=== PATIENT | female | born 1995 | race Caucasian/White ===

== ENCOUNTER 2018-09-11 10:49 | Outpatient (CLI) | payer OTHER ==
--- NOTE | 2018-09-11 12:30 | Non Stress Test Report ---
Non Stress Test Datetime Report Generated by CPN: 09/11/2018 12:30 INDICATION Indication for Study: Other Indication for Study (NST) Other: repeat NST VITAL SIGNS Temperature - NST: 97.9 Pulse - NST: 76 RESP - NST: 18 NBPSYS NST: 98 NBPDIA NST: 56 MONITORING Monitor Explained: Monitor Explained; Test Explained; Patient Verbalized Understanding Time on Monitor: 09/11/2018 11:04 Time off Monitor: 09/11/2018 11:44 NST Duration: 40 NST INTERVENTIONS NST Interventions: PO Hydration Physician Notified NST: Gelacio HOLLINS, TOMASA Physician Notified NST: GelacioLisa GarciaRENE chawlaDENTAL HYGIENE ADMINISTRATIVE ASSISTANT A: [id number] BABY A Movement : Present Contraction Frequency : 0 FHR Baseline : 125 Accelerations : 15X15 Decelerations : None Variability : Moderate 6-25bpm NST Review: Meets Criteria for Reactive NST NST Review and Verified By : RENE SARAVIA Results: Reactive NST REPORT Report Trigger: Send Report
== END 2018-09-11 11:56 | disposition home or self-care (01) ==
LOC: LC 10:49
PROVIDERS: ATTEND Obstetrics & Gynecology
DX: Z34.93 Encounter for supervision of normal pregnancy, unspecified, third trimester (principal)
CPT/HCPCS: 59025

== ENCOUNTER 2018-10-06 09:01 | Outpatient (CLI) | payer OTHER | END 2018-10-06 09:39 | disposition home or self-care (01) | LOC: LC 09:01 | PROVIDERS: ATTEND Obstetrics & Gynecology | PROC: 4A1HXCZ Monitoring of Products of Conception, Cardiac Rate, External Approach (ICD-10-PCS; principal; 2018-10-06) | DX: Z34.93 Encounter for supervision of normal pregnancy, unspecified, third trimester (principal) | CPT/HCPCS: 59025 ==

== ENCOUNTER 2018-10-12 06:45 | Inpatient (IN) | payer OTHER ==
[2018-10-11 11:20] LABS: ABSOLUTE EOSINOPHILS # (AUTO) 0.2 10^3/uL (0.0-0.6); ABSOLUTE LYMPHOCYTES (AUTO) 1.7 10^3/uL (0.5-4.7); ABSOLUTE MONOCYTES (AUTO) 0.5 10^3/uL (0.1-1.4); ABSOLUTE NEUT (AUTO) 5.9 10^3/uL (1.7-8.2); BASOPHILS % (AUTO) 0.2 % (0-2); HEMATOCRIT 34.7 % (36.0-47.0); HEMOGLOBIN 11.9 g/dL (12.0-15.5); LYMPHOCYTES % (AUTO) 20.4 % (13-45); MEAN CORPUSCULAR HEMOGLOBIN 28.5 pg (27.0-33.4); MEAN CORPUSCULAR HGB CONC 34.3 g/dL (32.0-36.0); MEAN CORPUSCULAR VOLUME 83 fl (80-97); MONOCYTES % (AUTO) 5.7 % (3-13); PLATELET COUNT 115 10^3/uL (150-450); RED BLOOD COUNT 4.17 10^6/uL (3.72-5.28); RED CELL DISTRIBUTION WIDTH 16.4 % (11.5-14.0); SEGMENTED NEUTROPHILS % (AUTO) 71.7 % (42-78); TOTAL CELLS COUNTED % (AUTO) 100 %; WHITE BLOOD COUNT 8.2 10^3/uL (4.0-10.5)
[2018-10-11 11:28] LABS: APPEARANCE,URINE CLEAR; BILIRUBIN,URINE NEGATIVE (NEGATIVE); COLOR,URINE STRAW; GLUCOSE, URINE NEGATIVE (NEGATIVE); KETONES,URINE NEGATIVE (NEGATIVE); LEUKOCYTE ESTERASE,URINE NEGATIVE (NEGATIVE); NITRITE,URINE NEGATIVE (NEGATIVE); PROTEIN,URINE NEGATIVE (NEGATIVE); URINE SPECIFIC GRAVITY 1.008; UROBILINOGEN,URINE NEGATIVE mg/dL (<2.0)
[2018-10-11 11:45] LABS: URINE AMPHETAMINES SCREEN NEGATIVE; URINE BARBITURATES SCREEN NEGATIVE; URINE BENZODIAZEPINES SCREEN NEGATIVE; URINE COCAINE SCREEN NEGATIVE; URINE MARIJUANA (THC) SCREEN NEGATIVE; URINE METHADONE SCREEN NEGATIVE; URINE PHENCYCLIDINE SCREEN NEGATIVE
[2018-10-11 12:51] LABS: CHLAM PCR NOT DETECTED (NOT DETECT); GON PCR NOT DETECTED (NOT DETECT)
[~2018-10-12 06:45] MED LIST: CEFAZOLIN 2 GM/D5W RTU 2 GM/50 ML RTUPB IV PRN; LIDOCAINE 0.5% INJ-PF (5 MG/ML) 50 ML SDV SUBCUT PRN
[2018-10-12] MEDS ORDERED: CEFAZOLIN SODIUM 2 GM in DEXTROSE 5%-WATER 100 ML IV PRN (08:29)
[2018-10-12] MEDS: RINGERS SOLUTION,LACTATED 1,000 ML IV PRN ×2 (08:51→21:21)
[2018-10-12] MEDS ORDERED: EPHEDRINE SULFATE INJ 50 MG/1 ML AMPULE ONE (09:09)
[2018-10-12] MEDS ORDERED: ONDANSETRON HCL INJ/PF 4 MG/2 ML SDV ONE (09:09)
[2018-10-12] MEDS ORDERED: MIDAZOLAM 2 MG/2 ML INJ ONE (09:09)
[2018-10-12] MEDS ORDERED: OXYTOCIN 10 UNIT/ML VIAL ONE (09:09)
[2018-10-12] MEDS ORDERED: FENTANYL CITRATE INJ/PF 100 MCG/2 ML AMPUL ONE ×2 (09:09→11:55)
[2018-10-12] MEDS ORDERED: BUPIVACAINE HCL/DEX-WATER/PF 15 MG/2 ML AMPULE ONE (09:25)
[2018-10-12] MEDS ORDERED: ACETAMINOPHEN 1,000 MG/100 ML RTUPB IV ONE (09:45)
[2018-10-12] MEDS ORDERED: FENTANYL CITRATE INJ/PF 100 MCG/2 ML AMPUL IV PRN ×3 (10:07)
[2018-10-12] MEDS ORDERED: MEPERIDINE HCL/PF INJ 25 MG/1 ML DISP.SYRIN IV PRN (10:07)
[2018-10-12] MEDS ORDERED: MORPHINE SULFATE 10 MG/ML INJ IV PRN (10:07)
[2018-10-12] MEDS ORDERED: DIPHENHYDRAMINE HCL 50 MG/ML VIAL IV PRN (10:07)
[2018-10-12] MEDS ORDERED: OXYCODONE-ACETAMINOPHEN 5-325 MG TABLET PO PRN ×3 (10:07→10:38)
[2018-10-12] MEDS ORDERED: PROMETHAZINE HCL INJ 25 MG/1 ML VIAL IV PRN ×3 (10:07→10:38)
[2018-10-12] MEDS ORDERED: SIMETHICONE 80 MG TAB.CHEW PO PRN (10:38)
[2018-10-12] MEDS ORDERED: DIPH/PERTUSS(ACELL)/TETANUS VAC/PF 0.5 ML SYR (>=10YO) IM PRN (10:38)
[2018-10-12] MEDS ORDERED: ACETAMINOPHEN 325 MG TABLET PO PRN (10:38)
[2018-10-12] MEDS ORDERED: ACETAMINOPHEN 1,000 MG/100 ML RTUPB IV PRN (10:38)
[2018-10-12] MEDS ORDERED: RINGERS SOLUTION,LACTATED 1,000 ML IV PRN (10:38)
[2018-10-12] MEDS ORDERED: OXYTOCIN/NORMAL SALINE 20 UNIT/1,000 ML RTUINJ IV PRN (10:38)
--- NOTE | 2018-10-12 10:44 | PDOC DELIVERY SUMMARY ---
Delivery Summary - Maternal Hx : I ANNE: 10/15/18 Gestational Age: 39.1 Ruptured Membranes: AROM Time of Rupture: 09:52 Fluids: Clear - Delivery Labor: Not In Labor Presentation: Vertex Heart Rate Monitoring: Done Pre-Operatively Support Person Present: Yes - BABYS FATHER AT BEDSIDE Location: OR : Scheduled Placenta: Within Normal Limits Placenta Description: Normal appearing Number of Vessels (Cord): 3 Delivery of Placenta Date: 10/12/18 Delivery of Placenta Time: 09:56 Estimated Blood Loss: 800 ml Delivery Quantitative Blood Loss (QBL): 650 - Medications Type of Anesthesia:: Spinal - Delivery Medications Delivery Meds: Methergine 0.2mg IM - Assess and Care Baby 1 Male Delivery of Infant Date: 10/12/18 Delivery of Time: 09:54 at 1 minute: 9 at 5 minutes: 9 Preprinted Number On Band: [id number] Infant Skin to Skin: Yes Skin to Skin (Mins): 2 To Nursery At: 10:01 Mode of Transport: Bassinet Infant Delivery Weight: 4,640 Delivery Length: 21.5 in - Delivery Personnel [employer]: JUSTO RABAGO Nurseblair RN: BOAZ ZAMAN MD: GURU CHEW
--- NOTE | 2018-10-12 10:56 | Operative Report ---
Operative Report DATE OF SURGERY: 10/12/18 PREOPERATIVE DIAGNOSIS: 1. Intrauterine at 39 weeks. 2. Suspected macrosomia. 3. GBS positive. 4. Rh+. 5. Rubella immune POSTOPERATIVE DIAGNOSIS: Same plus macrosomia OPERATION: Primary low transverse section SURGEON: GURU BRAYD ANESTHESIA: Spinal TISSUE REMOVED OR ALTERED: Placenta COMPLICATIONS: None ESTIMATED BLOOD LOSS: 800 ml INTRAOPERATIVE FINDINGS: Normal-appearing placenta; male fetus in a cephalic position; Apgars 9 at 1, 9 at 5 with a weight of 10 pounds 3 ounces; normal uterus, tubes and ovaries PROCEDURE: The patient was taken to the operating room where spinal anesthesia was obtained and found to be adequate. She was then prepped and draped in the normal sterile fashion and placed in the dorsal supine position with a leftward tilt. A Pfannenstiel skin incision was then made and carried through to the underlying layers of the fascia with the scalpel. The fascia was incised in the midline and the incision extended laterally with the Webb scissors. The superior aspect of the fascial incision was then grasped with Cleo clamps elevated and the underlying rectus muscles dissected off [both bluntly and sharply]. Attention was then turned to the inferior aspect of the fascial incision which in a similar fashion was grasped, tented up with Cleo clamps, and the rectus muscles dissected off [both bluntly and sharply]. The rectus muscles were then in the midline and the peritoneum at the amount identified and entered [bluntly]. The peritoneal incision was then extended superiorly and inferiorly with good visualization of the bladder. The bladder blade was inserted and the vesicouterine peritoneum identified grasped with [place] pickups and entered sharply with the Metzenbaum scissors. This incision was then extended laterally with the Metzenbaum scissors and a bladder flap created digitally. The bladder blade was then reinserted and the lower uterine segment incised in a transverse fashion with the scalpel. The uterine incision was then extended bluntly. The bladder blade was removed and the infant's head was delivered from cephalic presentation atraumatically. The nose and mouth were suctioned and the cord doubly clamped and cut. And the was handed off to waiting pediatricians. The placenta was then delivered spontaneously and the uterus exteriorized and cleared of all clots and debris. The uterine incision was then repaired with 0 Vicryl in a running locked fashion. A second layer, using 0 chromic, was used to obtain hemostasis via imbrication of the initial layer. The bladder flap was then repaired with 3-0 Vicryl in a running fashion. The uterus was returned to the patient's abdomen and Interceed was placed overlying the uterine incision, as well as a piece placed vertically on the anterior surface of the uterus, to prevent adhesions. The gutters were cleared of all clots and debris. All operative sites were noted to be hemostatic. The fascia was reapproximated with 0 Vicryl in a running fashion from each lateral edge to the midline. The subcutaneous fat layer was then closed in an interrupted fashion with 3-0 vicryl. The skin was closed with 4-0 Monocryl in a running, subcuticular fashion. The patient tolerated the procedure well. Sponge, lap, needle and instrument counts are correct x 2. 2 g of Ancef were given prior to skin incision. The patient was taken to the recovery area awake and in stable condition.
--- NOTE | 2018-10-12 10:58 | Brief Operative Note ---
BRIEF OPERATIVE REPORT DATE OF SURGERY: 10/12/18 TIME OF SURGERY: 09:30 PREOPERATIVE DIAGNOSIS: 1. Intrauterine at 39 weeks. 2. Suspected macrosomia. 3. GBS positive. 4. Rh+. 5. Rubella immune POSTOPERATIVE DIAGNOSIS: Same plus macrosomia SURGEON: GURU BRADY FINDINGS: Male in the cephalic position COMPLICATIONS: None ESTIMATED BLOOD LOSS: 800 ml TISSUE REMOVED OR ALTERED: Placenta TECHNICAL PROCEDURE: Primary low transverse section
[2018-10-12] MEDS ORDERED: KETOROLAC TROMETHAMINE INJ/PF 30 MG/1 ML SDV ONE (12:57)
[2018-10-12] MEDS: KETOROLAC TROMETHAMINE INJ/PF 30 MG/1 ML SDV IV SCH ×2 (13:00→22:01)
[2018-10-12] MEDS: HYDROMORPHONE HCL INJ/PF 2 MG/ML AMPULE IV PRN ×2 (14:30→19:46)
[2018-10-12] MEDS: DOCUSATE SODIUM 100 MG CAPSULE PO SCH (17:24)
[2018-10-13] MEDS: OXYCODONE-ACETAMINOPHEN 5-325 MG TABLET PO PRN ×4 (01:59→17:41)
[2018-10-13] MEDS: KETOROLAC TROMETHAMINE INJ/PF 30 MG/1 ML SDV IV SCH (05:52)
[2018-10-13 07:49] LABS: HEMATOCRIT 32.4 % (36.0-47.0); HEMOGLOBIN 10.9 g/dL (12.0-15.5); MEAN CORPUSCULAR HEMOGLOBIN 28.6 pg (27.0-33.4); MEAN CORPUSCULAR HGB CONC 33.8 g/dL (32.0-36.0); MEAN CORPUSCULAR VOLUME 85 fl (80-97); PLATELET COUNT 118 10^3/uL (150-450); RED BLOOD COUNT 3.82 10^6/uL (3.72-5.28); RED CELL DISTRIBUTION WIDTH 16.4 % (11.5-14.0); WHITE BLOOD COUNT 9.7 10^3/uL (4.0-10.5)
[2018-10-13] MEDS: PRENATAL VITAMIN W DHA CAPSULE PO SCH (10:10)
[2018-10-13] MEDS: DOCUSATE SODIUM 100 MG CAPSULE PO SCH ×2 (10:10→17:42)
--- NOTE | 2018-10-13 11:03 | PDOC PROGRESS REPORT ---
Subjective-OB Progress Note for:: 10/13/18 Physical Exam (OB) Vital Signs: Temp Pulse Resp BP Pulse Ox 98.1 F 83 18 117/66 98 10/13/18 08:54 10/13/18 08:54 10/13/18 08:54 10/13/18 08:54 10/13/18 08:54 Intake & Output 10/12/18 10/13/18 10/14/18 06:59 06:59 06:59 Intake Total 3250 Output Total 760 Balance 2490 Weight 99.79 kg 100 kg - PIH/Pre-Eclampsia DTR's: 1 + Clonus: Negative Headache: Absent Epigastric Pain: No Visual Changes: No - Dressing Removed: No Incision: Dressing Closure Type: op site - Lochia Lochia Amount: Scant < 10 ml Lochia Color: Rubra/Red - Abdomen Description: Soft, Round Hernia Present: No Bowel Sounds: Normoactive Flatus Presence: Present Stool: No Fundal Description: Firm, Midline Fundal Height: u/u - u/2 Objective-Diagnostic Laboratory: 10/13/18 07:34 10/13/18 07:34 WBC 9.7 RBC 3.82 Hgb 10.9 L Hct 32.4 L MCV 85 MCH 28.6 MCHC 33.8 RDW 16.4 H Plt Count 118 L
[2018-10-13] MEDS: IBUPROFEN 800 MG TABLET PO SCH (17:42)
[2018-10-14] MEDS: OXYCODONE-ACETAMINOPHEN 5-325 MG TABLET PO PRN (01:00)
[2018-10-14] MEDS: IBUPROFEN 800 MG TABLET PO SCH ×3 (01:05→11:58)
[2018-10-14 08:34] VITALS: BP 119/73
[2018-10-14] MEDS: PRENATAL VITAMIN W DHA CAPSULE PO SCH (10:39)
[2018-10-14] MEDS: DOCUSATE SODIUM 100 MG CAPSULE PO SCH (10:39)
--- NOTE | 2018-10-14 11:13 | PDOC PROGRESS REPORT ---
Subjective-OB Progress Note for:: 10/14/18 Subjective: Ready to go home. Physical Exam (OB) Vital Signs: Temp Pulse Resp BP Pulse Ox 98.0 F 85 14 119/73 99 10/14/18 08:32 10/14/18 08:32 10/14/18 08:32 10/14/18 08:32 10/14/18 08:32 Intake & Output 10/13/18 10/14/18 10/15/18 06:59 06:59 06:59 Intake Total 3250 Output Total 760 Balance 2490 Weight 100 kg - PIH/Pre-Eclampsia DTR's: 1 + Clonus: Negative Headache: Absent Epigastric Pain: No Visual Changes: No - Dressing Removed: No - optsite clean, dry, and intact Incision: Dressing Closure Type: op site - Lochia Lochia Amount: Scant < 10 ml Lochia Color: Rubra/Red - Abdomen Description: Soft, Round Hernia Present: No Bowel Sounds: Normoactive Flatus Presence: Present Stool: Yes Fundal Description: Firm, Midline Fundal Height: u/u - u/2 Objective-Diagnostic Laboratory: 10/13/18 07:34
--- NOTE | 2018-10-14 11:20 | PDOC DISCHARGE SUMMARY ---
Final Diagnosis Discharge Date: 10/14/18 - Final Diagnosis (1) Is this a current diagnosis for this admission?: Yes (2) S/P primary low transverse Is this a current diagnosis for this admission?: Yes (3) Macrosomia Is this a current diagnosis for this admission?: Yes Discharge Data - Discharge Medication Prescriptions: Oxycodone HCl/Acetaminophen [Percocet 5-325 mg Tablet] 1 tab PO Q4HP PRN #20 tablet PRN Reason: Ibuprofen [Motrin 800 mg Tablet] 800 mg PO Q6 #30 tablet Home Medications: 114/Iron A-G/Folate 1 [Prenate Elite Tablet] 1 each PO DAILY 09/11/18 Ferrous Sulfate [Iron] 325 mg PO DAILY 10/06/18 Loratadine [Claritin 10 mg Tablet] 10 mg PO DAILY 10/12/18 Ibuprofen [Motrin 800 mg Tablet] 800 mg PO Q6 #30 tablet 10/14/18 Oxycodone HCl/Acetaminophen [Percocet 5-325 mg Tablet] 1 tab PO Q4HP PRN #20 tablet 10/14/18 Reason(s) for Admission: Ceasarean Section-Primary Procedures: Ultrasound Intrapartum Procedure(s): : Low Cervical, Transverse - Data Baby 1 Male at 1 minute: 9 at 5 minutes: 9 Weight: 4640 kg Home with Mother: Yes Complications: No - Diagnosis Test Laboratory: Temp Pulse Resp BP Pulse Ox 98.0 F 85 14 119/73 99 10/14/18 08:32 10/14/18 08:32 10/14/18 08:32 10/14/18 08:32 10/14/18 08:32 10/11/18 10/11/18 10/13/18 10:35 10:50 07:34 RBC 4.17 3.82 Hgb 11.9 L 10.9 L Hct 34.7 L 32.4 L Urine Opiates Screen NEGATIVE - Discharge information/Instructions Discharge Activity: Activity As Tolerated, Balance Activity w/Rest, No Lifting Over 10 Pounds, No Lifting/Push/Pulling, Pelvic Rest, Slowly Increase Activity, No tub bath Discharge Diet: Regular Disposition: HOME, SELF-CARE Follow up with: [facility] in: 1, Weeks
--- NOTE | 2018-10-15 23:36 | Non Stress Test Report ---
Non Stress Test Datetime Report Generated by CPN: 10/15/2018 23:36 DEMOGRAPHIC EGA NST: 38.5 INDICATION Indication for Study: Ordered by Provider VITAL SIGNS Temperature - NST: 99.2 Pulse - NST: 86 RESP - NST: 17 NBPSYS NST: 106 NBPDIA NST: 62 MONITORING Monitor Explained: Monitor Explained; Test Explained; Patient Verbalized Understanding Time on Monitor: 10/06/2018 09:11 Time off Monitor: 10/06/2018 09:32 NST Duration: 21 NST INTERVENTIONS NST Interventions: PO Hydration; Reposition Patient Physician Notified NST: A Boo CNM BABY A: [id number] BABY A Movement : Present Contraction Frequency : none FHR Baseline : 135 Accelerations : 15X15 Decelerations : None Variability : Moderate 6-25bpm NST Review: Meets Criteria for Reactive NST NST Review and Verified By : Manju Cervantes RNC NST Results: Reactive NST REPORT Report Trigger: Send Report
== END 2018-10-14 12:28 | disposition home or self-care (01) | DRG 788 ==
LOC: 2S 06:45
PROVIDERS: ADMIT Obstetrics & Gynecology; ATTEND Obstetrics & Gynecology
PROC: 10D00Z1 Extraction of Products of Conception, Low, Open Approach (ICD-10-PCS; principal; 2018-10-12 09:15)
DX: O36.63X0 Maternal care for excessive fetal growth, third trimester, not applicable or unspecified (principal); O99.824 Streptococcus B carrier state complicating childbirth; O99.334 Smoking (tobacco) complicating childbirth; F17.211 Nicotine dependence, cigarettes, in remission; Z3A.39 39 weeks gestation of pregnancy; Z37.0 Single live birth
CPT/HCPCS: 1961; 36415; 59025; 80307; 81001; 85025; 85027; 86850; 86900; 86901; 87491; 87591; 94799; C1765; J0131; J1170; J1885; J2250; J2405; J2550; J2590; J3010; J3490; J7120

== ENCOUNTER 2019-09-15 00:51 | Emergency (ER) | payer OTHER ==
[2019-09-15] MEDS ORDERED: DIPHENHYDRAMINE HCL 50 MG/ML VIAL IV ONE (05:34)
[2019-09-15] MEDS ORDERED: KETOROLAC TROMETHAMINE INJ/PF 30 MG/1 ML SDV IV ONE (05:34)
[2019-09-15] MEDS ORDERED: PROCHLORPERAZINE EDISYLATE INJ 10 MG/2 ML VIAL IV ONE (05:34)
[2019-09-15] MEDS ORDERED: NORMAL SALINE 1000 ML 1,000 ML IV ONE (05:34)
--- NOTE | 2019-09-15 05:38 | ER Document Report ---
ED Headache - General Chief Complaint: Headache Stated Complaint: HEAD PAIN Time Seen by Provider: 09/15/19 05:28 Primary Care Provider: JIM TEJEDA FNP-C [Primary Care Provider] - Follow up as needed Mode of Arrival: Ambulatory Information source: Patient Notes: Patient presents complaining of headache that started gradually 3 days ago. Patient states that headache worsened today. Patient reports headache in the frontal area with nausea diarrhea and sore throat. Patient states that 3 days ago she had a fever but none since then. Patient denies any head injury or history of migraines. No history of IV drug use. No neck or back tenderness. TRAVEL OUTSIDE OF THE [place] IN LAST 30 DAYS: No - HPI Patient complains to provider of: Headache Onset: This afternoon Onset was: Gradual Timing: Still present Quality of pain: Achy Pain Level: 4 Associated symptoms: Photophobia. denies: Chills, Confusion, Fever, Neck pain, Speech problems, Stiff neck, Trouble walking Exacerbated by: Light Similar symptoms previously: Yes Recently seen / treated by doctor: No - Related Data Allergies/Adverse Reactions: No Known Allergies Allergy (Verified 10/06/18 09:43) Home Medications: zoloft. BC pills Past Medical History - General Information source: Patient, Relative - Social History Smoking Status: Never Smoker Frequency of alcohol use: None Drug Abuse: None Occupation: None Lives with: Family Family History: Reviewed & Not Pertinent Patient has suicidal ideation: No Patient has homicidal ideation: No EENT Medical History: Reports: Other - Allergies Psychiatric Medical History: Reports: Hx Depression Past Surgical History: Reports: Hx Section Review of Systems - Review of Systems Constitutional: No symptoms reported. denies: Fever, Recent illness EENT: Throat pain Cardiovascular: No symptoms reported. denies: Chest pain Respiratory: No symptoms reported. denies: Cough, Short of breath Gastrointestinal: Diarrhea, Nausea. denies: Abdominal pain, Vomiting Genitourinary: No symptoms reported. denies: Dysuria Female Genitourinary: No symptoms reported Musculoskeletal: No symptoms reported. denies: Back pain, Neck pain Skin: No symptoms reported. denies: Rash Hematologic/Lymphatic: No symptoms reported Neurological/Psychological: Headaches Physical Exam - Vital signs Vitals: Temp Pulse Resp BP Pulse Ox 97.6 F 69 12 120/65 96 09/15/19 00:58 09/15/19 00:58 09/15/19 00:58 09/15/19 00:58 09/15/19 00:58 - General General appearance: Appears well, Alert In distress: None - HEENT Head: Normocephalic Eyes: Normal Conjunctiva: Normal Eyelashes: Normal Pupils: PERRL Ears: Normal External canal: Normal Tympanic membrane: Normal Nasal: Normal Mouth/Lips: Normal Mucous membranes: Normal Pharynx: Erythema. No: Peritonsillar abscess, Tonsillar hypertrophy Neck: Normal, Supple. No: Lymphadenopathy, Meningismus - Respiratory Respiratory status: No respiratory distress Chest status: Nontender Breath sounds: Normal Chest palpation: Normal - Cardiovascular Rhythm: Regular Heart sounds: S1 appreciated, S2 appreciated - Back Back: Normal, Nontender. No: CVA tenderness, Vertebra tenderness - Extremities General upper extremity: Normal inspection General lower extremity: Normal inspection - Neurological Neuro grossly intact: Yes Cognition: Normal Orientation: AAOx4 Barbara Coma Scale Eye Opening: Spontaneous Barbara Coma Scale Verbal: Oriented Barbara Coma Scale Motor: Obeys Commands Barbara Coma Scale Total: 15 - Psychological Associated symptoms: Normal affect, Normal mood - Skin Skin Temperature: Warm Skin Moisture: Dry Skin Color: Normal Course - Re-evaluation Re-evalutation: 09/15/19 06:54 Patient reports that headache pain is improved at this time although not completely resolved. Patient declines needing any additional medication at this time. Patient reports feeling better. The patient presents with headache without signs of TESTING ANALYST bleed, stroke, infection, or other serious etiology. The patient is neurologically intact. Given the extremely low risk of these diagnoses further testing and evaluation for these possibilities does not appear to be indicated at this time. The patient has been instructed to return if the symptoms worsen or change in any way. - Vital Signs Vital signs: Temp Pulse Resp BP Pulse Ox 97.6 F 69 12 120/65 96 09/15/19 00:58 09/15/19 00:58 09/15/19 00:58 09/15/19 00:58 09/15/19 00:58 Discharge - Discharge Clinical Impression: Headache Qualifiers: Headache type: unspecified Headache chronicity pattern: unspecified pattern Intractability: not intractable Qualified Code(s): R51 - Headache Condition: Stable Disposition: HOME, SELF-CARE Instructions: Intravenous Compazine for Headaches ([facility]), Use of Diphenhydramine, Headache ([facility]), Toradol Injection ([facility]) Additional Instructions: Return immediately for any new or worsening symptoms Followup with your primary care provider, call tomorrow to make a followup appointment Prescriptions: Butalb/Acetaminophen/Caffeine [Fioricet (50-325-40 mg) Tablet] 1 - 2 tab PO Q4H PRN #12 each PRN Reason: Referrals: JIM TEJEDA, [facility] [Primary Care Provider] - Follow up as needed
[2019-09-15 07:12] VITALS: BP 134/75
== END 2019-09-15 07:11 | disposition home or self-care (01) ==
LOC: ER 00:51
DX: R51 Headache (principal); H53.149 Visual discomfort, unspecified
CPT/HCPCS: 99284; 96374; 96375; 87070; 87880; J1200; J1885; J0780; J7030